=== PATIENT | male | born 1980 | race Hispanic/Latino ===

== ENCOUNTER 2018-08-03 22:04 | Emergency (ER) | payer BC ==
[2018-08-03] MEDS ORDERED: ONDANSETRON ODT 4 MG TAB ONE (22:50)
[2018-08-03] MEDS ORDERED: MORPHINE SULFATE 8 MG/ML VIAL ONE (22:51)
== END 2018-08-03 23:21 | disposition home or self-care (01) ==
LOC: EDH 22:04
DX: S83.8X1A Sprain of other specified parts of right knee, initial encounter (principal); Z72.0 Tobacco use; W18.39XA Other fall on same level, initial encounter; Y93.44 Activity, trampolining; Y92.830 Public park as the place of occurrence of the external cause; Y99.8 Other external cause status
CPT/HCPCS: 73562; 96372; 99284; J2270

== ENCOUNTER 2022-02-02 22:28 | Inpatient (IN) | payer OTHER ==
[~2022-02-02] VITALS: Ht 167.6 cm; Wt 83.9 kg
[~2022-02-02 22:28] MED LIST: ATEN1TAB4 PO; FINA5TAB41 PO; TAMS-1 PO
[2022-02-02 23:09] LABS: APPEARANCE,URINE Clear (CLEAR); BILIRUBIN,URINE Negative (NEGATIVE); COLOR,URINE Yellow (YELLOW); GLUCOSE, URINE (UA) Negative (NEGATIVE); KETONES,URINE Negative (NEGATIVE); LEUKOCYTE ESTERASE ,URINE Negative (NEGATIVE); NITRATE,URINE Negative (NEGATIVE); OCCULT BLOOD,URINE Negative (NEGATIVE); PH,URINE 5.5 (5.0-8.0); PROTEIN,URINE Negative (NEGATIVE); UROBILINOGEN,URINE 0.2 mg/dL (0.2-1.0)
[2022-02-02 23:09] LABS: BASOPHILS % (AUTO) 0.3 % (0.0-5.0); LYMPHOCYTES % (AUTO) 15.8 % (21.0-51.0); MEAN CORPUSCULAR HEMOGLOBIN 30.2 pg (27.0-33.0); MEAN CORPUSCULAR HGB CONC 32.6 g/dL (32.0-36.0); MEAN CORPUSCULAR VOLUME 92.9 fL (79-99); MONOCYTES % (AUTO) 8.8 % (3.0-13.0); NEUTROPHILS % (AUTO) 72.4 % (40.0-77.0); PLATELET COUNT (AUTO) 400 K/uL (130-400); WHITE BLOOD COUNT (AUTO) 8.9 K/uL (4.8-10.8)
[2022-02-02 23:22] LABS: CREATININE 1.3 mg/dL (0.5-1.5); POTASSIUM 4.3 mmol/L (3.5-5.1)
[2022-02-02 23:26] LABS: ALBUMIN 3.6 g/dL (3.5-5.0); BILIRUBIN,TOTAL 0.3 mg/dL (0.2-1.0); TOTAL PROTEIN, SERUM 7.9 g/dL (6.0-8.3)
[2022-02-02 23:31] LABS: INR 0.94 (0.85-1.15); PROTHROMBIN TIME 10.3 SEC (9.6-11.6)
[2022-02-03] VITALS (31 sets, daily range): BP systolic 120–189; BP diastolic 66–105
[2022-02-03] MEDS ORDERED: ACETAMINOPHEN 325 MG TAB PO PRN ×2
[2022-02-03] MEDS ORDERED: ONDANSETRON 4MG INJ IV PRN
[2022-02-03] MEDS ORDERED: KETOROLAC 15MG/ML VIAL (15MG/ML) IM PRN
[2022-02-03 05:00] LABS: BASOPHILS % (AUTO) 0.1 % (0.0-5.0); EOSINOPHILS % (AUTO) 2.8 % (0.0-8.0); HEMATOCRIT 33.9 % (42-54); LYMPHOCYTES % (AUTO) 19.1 % (21.0-51.0); MEAN CORPUSCULAR HEMOGLOBIN 29.8 pg (27.0-33.0); MEAN CORPUSCULAR HGB CONC 32.2 g/dL (32.0-36.0); MEAN CORPUSCULAR VOLUME 92.6 fL (79-99); MONOCYTES % (AUTO) 10.2 % (3.0-13.0); NEUTROPHILS % (AUTO) 67.1 % (40.0-77.0); PLATELET COUNT (AUTO) 323 K/uL (130-400); RED BLOOD CELL COUNT(AUTO) 3.66 MIL/uL (4.50-6.20); RED CELL DISTRIBUTION WIDTH 12.8 % (11.0-15.5); WHITE BLOOD COUNT (AUTO) 7.2 K/uL (4.8-10.8)
[2022-02-03 05:09] LABS: INR 0.94 (0.85-1.15); PROTHROMBIN TIME 10.3 SEC (9.6-11.6)
[2022-02-03 05:24] LABS: ALBUMIN 2.9 g/dL (3.5-5.0); BILIRUBIN,TOTAL 0.2 mg/dL (0.2-1.0); POTASSIUM 3.7 mmol/L (3.5-5.1); TOTAL PROTEIN, SERUM 6.4 g/dL (6.0-8.3)
[2022-02-03 06:29] LABS: ERYTHROCYTE SEDIMENTATION RATE 49 MM/HR (0-15)
[2022-02-03] MEDS ORDERED: ROPIVACAINE 0.5% 5MG/ML 30ML IJ ONE (12:27)
[2022-02-03] MEDS ORDERED: PROPOFOL 10 MG/ML 20ML VIAL IV ONE (12:49)
[2022-02-03] MEDS ORDERED: FENTANYL CITRATE PF 50 MCG/1 ML 2ML VIAL ONE ×3 (12:50→14:40)
[2022-02-03] MEDS ORDERED: LIDOCAINE PF 100MG/5ML (2%) SYRINGE 5ML ONE (12:50)
[2022-02-03] MEDS ORDERED: ROCURONIUM 10MG/1ML SYR 10 MG/ML ML ONE (12:50)
[2022-02-03] MEDS ORDERED: MIDAZOLAM HCL 1 MG/ML 2ML VIAL ONE (12:50)
[2022-02-03] MEDS ORDERED: FAMOTIDINE 20MG VIAL IV ONE (12:54)
[2022-02-03] MEDS ORDERED: LACTATED RINGERS 1000ML 1,000 ML IV ONE (13:15)
[2022-02-03] MEDS ORDERED: CEFAZOLIN SODIUM 1 GM VIAL ONE (13:32)
[2022-02-03] MEDS ORDERED: ONDANSETRON 4MG INJ ONE (13:54)
[2022-02-03 14:18] LABS: AMPHET/METH SCREEN,URINE NEGATIVE (NEGATIVE); BARBITURATE SCREEN, URINE NEGATIVE (NEGATIVE); BENZODIAZEPINES SCREEN,URINE NEGATIVE (NEGATIVE); CANNABINOID SCREEN,URINE POSITIVE (NEGATIVE); COCAINE SCREEN,URINE POSITIVE (NEGATIVE); OPIATE SCREEN,URINE NEGATIVE (NEGATIVE); PHENCYCLIDINE SCREEN,URINE NEGATIVE (NEGATIVE)
[2022-02-03] MEDS ORDERED: HYDROMORPHONE 1 MG INJ ONE (15:18)
[2022-02-03] MEDS ORDERED: DEXAMETHASONE SOD PHOSPHATE 4 MG/ML 1ML VIAL ONE (15:40)
[2022-02-03] MEDS ORDERED: LABETALOL 20MG VIAL IV ONE (16:40)
[2022-02-03] MEDS ORDERED: ENALAPRILAT DIHYDRATE 1.25MG/ML 1ML VIAL IV ONE (17:26)
[2022-02-03] MEDS ORDERED: CLONIDINE HCL 0.1 MG TABLET PO PRN (19:00)
[2022-02-03] MEDS ORDERED: TAMSULOSIN HCL 0.4 MG CAP.ER.24H PO SCH (21:00)
[2022-02-03] MEDS: KETOROLAC 15MG/ML VIAL (15MG/ML) IV PRN (21:00)
[2022-02-03] MEDS: CEFAZOLIN SODIUM 1 GM VIAL IVP SCH (21:04)
[2022-02-03] MEDS: 0.9%NACL 1000ML 1,000 ML IV SCH ×2 (21:04)
[2022-02-04 03:58] VITALS: BP 105/68
[2022-02-04 04:02] LABS: HEMATOCRIT 32.8 % (42-54); MEAN CORPUSCULAR HEMOGLOBIN 29.9 pg (27.0-33.0); MEAN CORPUSCULAR HGB CONC 32.6 g/dL (32.0-36.0); MEAN CORPUSCULAR VOLUME 91.6 fL (79-99); RED BLOOD CELL COUNT(AUTO) 3.58 MIL/uL (4.50-6.20); RED CELL DISTRIBUTION WIDTH 12.6 % (11.0-15.5); WHITE BLOOD COUNT (AUTO) 14.7 K/uL (4.8-10.8)
[2022-02-04 04:17] LABS: CREATININE 0.8 mg/dL (0.5-1.5); POTASSIUM 3.8 mmol/L (3.5-5.1)
[2022-02-04] MEDS: CEFAZOLIN SODIUM 1 GM VIAL IVP SCH (05:44)
[2022-02-04] MEDS: 0.9%NACL 1000ML 1,000 ML IV SCH (06:00)
[2022-02-04 07:30] VITALS: BP 114/79
[2022-02-04] MEDS: FINASTERIDE 5 MG TABLET PO SCH ×2 (08:44→09:00)
[2022-02-04] MEDS ORDERED: CHLORTHALIDONE PO SCH (09:00)
[2022-02-04] MEDS ORDERED: ATENOLOL PO SCH (09:00)
[2022-02-04 11:00] VITALS: BP 116/79
[2022-02-04 16:00] VITALS: BP 124/77
[2022-02-04] MEDS: KETOROLAC 15MG/ML VIAL (15MG/ML) IV PRN ×2 (16:23→22:56)
[2022-02-04 20:17] VITALS: BP 124/88
[2022-02-04] MEDS: FAMOTIDINE 20MG TAB PO SCH (21:00)
[2022-02-04 23:36] VITALS: BP 133/88
[2022-02-05 04:32] VITALS: BP 134/88
[2022-02-05 08:00] VITALS: BP 139/94
[2022-02-05] MEDS ORDERED: ENOXAPARIN SODIUM 40 MG/0.4 ML SYRINGE SQ SCH (09:00)
[2022-02-05] MEDS: FAMOTIDINE 20MG TAB PO SCH (09:41)
[2022-02-05] MEDS: KETOROLAC 15MG/ML VIAL (15MG/ML) IV PRN (10:50)
[2022-02-05 12:00] VITALS: BP 128/96
== END 2022-02-05 13:00 | disposition home or self-care (01) | DRG 493 ==
LOC: EDH 22:28 → EDHIP 22:29 → 3DH 02-03 03:03
PROVIDERS: ADMIT Hospitalist; ATTEND Hospitalist
PROC: 0QPHX5Z Removal of External Fixation Device from Left Tibia, External Approach (ICD-10-PCS; 2022-02-03)
PROC: 0QSH04Z Reposition Left Tibia with Internal Fixation Device, Open Approach (ICD-10-PCS; principal; 2022-02-03 13:39)
PROC: 0QSK04Z Reposition Left Fibula with Internal Fixation Device, Open Approach (ICD-10-PCS; 2022-02-03 13:39)
DX: T84.84XA Pain due to internal orthopedic prosthetic devices, implants and grafts, initial encounter (principal); E87.1 Hypo-osmolality and hyponatremia; Z20.822 Contact with and (suspected) exposure to COVID-19; I10 Essential (primary) hypertension; F12.90 Cannabis use, unspecified, uncomplicated; Y83.8 Other surgical procedures as the cause of abnormal reaction of the patient, or of later complication, without mention of misadventure at the time of the procedure; Y92.89 Other specified places as the place of occurrence of the external cause
CPT/HCPCS: 36415; 73610; 80048; 80053; 80305; 81003; 84145; 85025; 85027; 85610; 85651; 85730; 87635; 93005; 93971; 97039; C9803; G0378; J0690; J1100; J1170; J1650; J1885; J2001; J2250; J2405; J2704; J2795; J3010; J3490; J7030; J7120

== ENCOUNTER 2022-10-29 20:10 | Emergency (ER) | payer OTHER ==
[~2022-10-29] VITALS: Ht 170.2 cm; Wt 78.5 kg
[2022-10-29] MEDS ORDERED: IBUPROFEN 800 MG TAB PO ONE (21:00)
[2022-10-29 21:45] LABS: BASOPHILS % (AUTO) 0.1 % (0.0-5.0); EOSINOPHILS % (AUTO) 1.3 % (0.0-8.0); HEMATOCRIT 37.2 % (42-54); MEAN CORPUSCULAR HEMOGLOBIN 29.5 pg (27.0-33.0); MEAN CORPUSCULAR HGB CONC 32.8 g/dL (32.0-36.0); MEAN CORPUSCULAR VOLUME 90.1 fL (79-99); MONOCYTES % (AUTO) 6.8 % (3.0-13.0); NEUTROPHILS % (AUTO) 76.6 % (40.0-77.0); PLATELET COUNT (AUTO) 333 K/uL (130-400); RED BLOOD CELL COUNT(AUTO) 4.13 MIL/uL (4.50-6.20); RED CELL DISTRIBUTION WIDTH 12.9 % (11.0-15.5); WHITE BLOOD COUNT (AUTO) 9.4 K/uL (4.8-10.8)
[2022-10-29 21:56] LABS: POTASSIUM 3.6 mmol/L (3.5-5.1)
[2022-10-29 22:02] LABS: ALBUMIN 3.3 g/dL (3.5-5.0); CRP QUANTITATIVE 16.5 mg/L (0.00-9.0); TOTAL PROTEIN, SERUM 7.6 g/dL (6.0-8.3)
[2022-10-29 22:39] VITALS: BP 146/71
== END 2022-10-29 22:45 | disposition home or self-care (01) ==
LOC: EDH 20:10
DX: M25.572 Pain in left ankle and joints of left foot (principal); Z79.1 Long term (current) use of non-steroidal anti-inflammatories (NSAID)
CPT/HCPCS: 36415; 73610; 80053; 83605; 85025; 86140; 87040

== ENCOUNTER 2023-04-18 12:27 | Inpatient (IN) | payer OTHER ==
[~2023-04-18] VITALS: Ht 170.2 cm; Wt 81.4 kg
[2023-04-18] MEDS ORDERED: CLINDAMYCIN IVPB 600MG/50ML 50 ML IV SCH (15:00)
[2023-04-18 18:03] LABS: BASOPHILS % (AUTO) 0.2 % (0.0-5.0); EOSINOPHILS % (AUTO) 1.9 % (0.0-8.0); HEMATOCRIT 40.8 % (42-54); LYMPHOCYTES % (AUTO) 13.4 % (21.0-51.0); MEAN CORPUSCULAR HEMOGLOBIN 28.9 pg (27.0-33.0); MEAN CORPUSCULAR HGB CONC 32.1 g/dL (32.0-36.0); MEAN CORPUSCULAR VOLUME 90.1 fL (79-99); MONOCYTES % (AUTO) 7.6 % (3.0-13.0); NEUTROPHILS % (AUTO) 76.5 % (40.0-77.0); PLATELET COUNT (AUTO) 310 K/uL (130-400); RED BLOOD CELL COUNT(AUTO) 4.53 MIL/uL (4.50-6.20); RED CELL DISTRIBUTION WIDTH 13.9 % (11.0-15.5)
[2023-04-18] MEDS: CLINDAMYCIN IVPB 900MG/50ML 50 ML IV SCH (18:38)
[2023-04-18 18:54] LABS: CREATININE 0.8 mg/dL (0.5-1.5); POTASSIUM 4.1 mmol/L (3.5-5.1)
[2023-04-18 18:59] LABS: ALBUMIN 3.4 g/dL (3.5-5.0); TOTAL PROTEIN, SERUM 7.8 g/dL (6.0-8.3)
[2023-04-18] MEDS ORDERED: ACETAMINOPHEN 325 MG TAB PO PRN ×2 (19:00)
[2023-04-18] MEDS ORDERED: MORPHINE 2 MG SYG IV PRN (19:00)
[2023-04-18] MEDS ORDERED: ONDANSETRON 4MG INJ IV PRN (19:00)
[2023-04-18] MEDS: LACTATED RINGERS 1000ML 1,000 ML IV SCH (19:43)
[2023-04-18] MEDS: FAMOTIDINE 20MG VIAL IV SCH (21:59)
[2023-04-18] MEDS: ZOSYN 3.375GM+NS 50ML 50 ML IVPB SCH (21:59)
[2023-04-19] MEDS: CLINDAMYCIN IVPB 900MG/50ML 50 ML IV SCH ×3 (02:18→18:35)
[2023-04-19 04:01] VITALS: BP 141/93
[2023-04-19] MEDS: MORPHINE 4 MG SYG IV PRN ×3 (04:32→18:54)
[2023-04-19] MEDS: ZOSYN 3.375GM+NS 50ML 50 ML IVPB SCH ×3 (04:32→21:02)
[2023-04-19 05:46] LABS: BASOPHILS % (AUTO) 0.3 % (0.0-5.0); EOSINOPHILS % (AUTO) 2.4 % (0.0-8.0); HEMATOCRIT 36.1 % (42-54); LYMPHOCYTES % (AUTO) 18.5 % (21.0-51.0); MEAN CORPUSCULAR HEMOGLOBIN 28.7 pg (27.0-33.0); MEAN CORPUSCULAR HGB CONC 32.4 g/dL (32.0-36.0); MEAN CORPUSCULAR VOLUME 88.7 fL (79-99); MONOCYTES % (AUTO) 8.6 % (3.0-13.0); NEUTROPHILS % (AUTO) 69.8 % (40.0-77.0); PLATELET COUNT (AUTO) 277 K/uL (130-400); RED BLOOD CELL COUNT(AUTO) 4.07 MIL/uL (4.50-6.20); RED CELL DISTRIBUTION WIDTH 13.4 % (11.0-15.5); WHITE BLOOD COUNT (AUTO) 7.8 K/uL (4.8-10.8)
[2023-04-19 06:00] LABS: INR 0.94 (0.85-1.15); PROTHROMBIN TIME 10.3 SEC (9.6-11.6)
[2023-04-19 06:01] LABS: PARTIAL THROMBOPLASTIN TIME 31.9 SEC (26.3-35.5)
[2023-04-19 06:12] LABS: CREATININE 0.8 mg/dL (0.5-1.5); MAGNESIUM 1.9 mg/dL (1.80-2.40); PHOSPHORUS 3.7 mg/dL (2.5-4.9); POTASSIUM 3.5 mmol/L (3.5-5.1)
[2023-04-19 08:00] VITALS: BP 137/74
[2023-04-19] MEDS: ENOXAPARIN SODIUM 40 MG/0.4 ML SYRINGE SQ SCH (09:00)
[2023-04-19] MEDS: FAMOTIDINE 20MG VIAL IV SCH ×2 (09:00→21:02)
[2023-04-19] MEDS: LACTATED RINGERS 1000ML 1,000 ML IV SCH (11:24)
[2023-04-19 12:00] VITALS: BP 134/75
[2023-04-19 16:00] VITALS: BP 115/72
[2023-04-19 20:13] VITALS: BP 119/86
[2023-04-19] MEDS: ZOLPIDEM TARTRATE 5 MG TAB PO PRN (21:21)
[2023-04-20] VITALS (7 sets, daily range): BP systolic 108–149; BP diastolic 64–103
[2023-04-20] MEDS: LACTATED RINGERS 1000ML 1,000 ML IV SCH ×2 (01:00→03:55)
[2023-04-20] MEDS: ZOSYN 3.375GM+NS 50ML 50 ML IVPB SCH ×3 (03:46→20:51)
[2023-04-20] MEDS: CLINDAMYCIN IVPB 900MG/50ML 50 ML IV SCH ×2 (03:46→10:41)
[2023-04-20 08:02] LABS: BASOPHILS % (AUTO) 0.4 % (0.0-5.0); HEMATOCRIT 36.8 % (42-54); LYMPHOCYTES % (AUTO) 26.2 % (21.0-51.0); MEAN CORPUSCULAR HEMOGLOBIN 28.9 pg (27.0-33.0); MEAN CORPUSCULAR HGB CONC 32.1 g/dL (32.0-36.0); MEAN CORPUSCULAR VOLUME 90.2 fL (79-99); MONOCYTES % (AUTO) 11.1 % (3.0-13.0); NEUTROPHILS % (AUTO) 57.9 % (40.0-77.0); PLATELET COUNT (AUTO) 272 K/uL (130-400); RED BLOOD CELL COUNT(AUTO) 4.08 MIL/uL (4.50-6.20); RED CELL DISTRIBUTION WIDTH 13.3 % (11.0-15.5)
[2023-04-20 08:17] LABS: CREATININE 0.8 mg/dL (0.5-1.5); CRP QUANTITATIVE 17.5 mg/L (0.00-9.0)
[2023-04-20] MEDS: FAMOTIDINE 20MG TAB PO SCH ×2 (08:44→20:52)
[2023-04-20] MEDS: ENOXAPARIN SODIUM 40 MG/0.4 ML SYRINGE SQ SCH (08:45)
[2023-04-20 09:37] LABS: ERYTHROCYTE SEDIMENTATION RATE 58 MM/HR (0-15)
[2023-04-20] MEDS: TRAMADOL HCL 50 MG TABLET PO PRN (14:29)
[2023-04-20] MEDS ORDERED: VANCOMYCIN PROTOCOL PER PHARMACY IV SCH (14:30)
[2023-04-20] MEDS: VANCOMYCIN KIT 1 GM/250 ML IV.KIT IV SCH ×2 (16:08→23:20)
[2023-04-20] MEDS: ZOLPIDEM TARTRATE 5 MG TAB PO PRN (20:51)
[2023-04-21] VITALS: BP 136/98
[2023-04-21 04:00] VITALS: BP 145/80
[2023-04-21] MEDS: ZOSYN 3.375GM+NS 50ML 50 ML IVPB SCH ×3 (05:01→21:20)
[2023-04-21 05:12] LABS: BASOPHILS % (AUTO) 0.4 % (0.0-5.0); EOSINOPHILS % (AUTO) 3.1 % (0.0-8.0); HEMATOCRIT 37.2 % (42-54); LYMPHOCYTES % (AUTO) 23.3 % (21.0-51.0); MEAN CORPUSCULAR HEMOGLOBIN 28.8 pg (27.0-33.0); MEAN CORPUSCULAR HGB CONC 31.7 g/dL (32.0-36.0); MEAN CORPUSCULAR VOLUME 90.7 fL (79-99); MONOCYTES % (AUTO) 8.8 % (3.0-13.0); PLATELET COUNT (AUTO) 284 K/uL (130-400); RED CELL DISTRIBUTION WIDTH 13.2 % (11.0-15.5); WHITE BLOOD COUNT (AUTO) 4.9 K/uL (4.8-10.8)
[2023-04-21 05:25] LABS: CREATININE 0.8 mg/dL (0.5-1.5); POTASSIUM 3.5 mmol/L (3.5-5.1)
[2023-04-21 06:39] LABS: ERYTHROCYTE SEDIMENTATION RATE 48 MM/HR (0-15)
[2023-04-21 08:00] VITALS: BP 128/75
[2023-04-21] MEDS: FAMOTIDINE 20MG TAB PO SCH ×2 (09:20→21:20)
[2023-04-21] MEDS: ENOXAPARIN SODIUM 40 MG/0.4 ML SYRINGE SQ SCH (09:21)
[2023-04-21] MEDS: VANCOMYCIN KIT 1 GM/250 ML IV.KIT IV SCH ×3 (09:22→21:20)
[2023-04-21 12:00] VITALS: BP 117/80
[2023-04-21 16:00] VITALS: BP 112/73
[2023-04-21 20:00] VITALS: BP 135/77
[2023-04-21] MEDS: ZOLPIDEM TARTRATE 5 MG TAB PO PRN (21:20)
[2023-04-21] MEDS: TRAMADOL HCL 50 MG TABLET PO PRN (21:26)
[2023-04-22] VITALS: BP 143/92
[2023-04-22 04:00] VITALS: BP 149/96
[2023-04-22] MEDS: ZOSYN 3.375GM+NS 50ML 50 ML IVPB SCH ×3 (05:06→20:38)
[2023-04-22 08:00] VITALS: BP 148/95
[2023-04-22] MEDS: VANCOMYCIN KIT 1 GM/250 ML IV.KIT IV SCH ×2 (08:57→15:19)
[2023-04-22] MEDS: FAMOTIDINE 20MG TAB PO SCH ×2 (08:58→20:38)
[2023-04-22] MEDS: ENOXAPARIN SODIUM 40 MG/0.4 ML SYRINGE SQ SCH (08:59)
[2023-04-22] MEDS: TRAMADOL HCL 50 MG TABLET PO PRN ×2 (09:08→22:50)
[2023-04-22 12:00] VITALS: BP 139/94
[2023-04-22 17:20] VITALS: BP 137/88
[2023-04-22] MEDS ORDERED: NYSTATIN-TRIAMCINOLONE CREAM 15 GM TP PRN (18:00)
[2023-04-22 20:00] VITALS: BP 145/81
[2023-04-23] VITALS: BP 130/93
[2023-04-23] MEDS: VANCOMYCIN KIT 1 GM/250 ML IV.KIT IV SCH ×3 (00:13→15:30)
[2023-04-23] MEDS: ZOLPIDEM TARTRATE 5 MG TAB PO PRN (00:13)
[2023-04-23 04:00] VITALS: BP 127/84
[2023-04-23] MEDS: ZOSYN 3.375GM+NS 50ML 50 ML IVPB SCH ×2 (04:44→13:00)
[2023-04-23 06:41] LABS: BASOPHILS % (AUTO) 0.3 % (0.0-5.0); EOSINOPHILS % (AUTO) 2.5 % (0.0-8.0); HEMATOCRIT 38.6 % (42-54); LYMPHOCYTES % (AUTO) 24.1 % (21.0-51.0); MEAN CORPUSCULAR HEMOGLOBIN 28.8 pg (27.0-33.0); MEAN CORPUSCULAR HGB CONC 32.6 g/dL (32.0-36.0); MEAN CORPUSCULAR VOLUME 88.1 fL (79-99); MONOCYTES % (AUTO) 8.8 % (3.0-13.0); NEUTROPHILS % (AUTO) 63.8 % (40.0-77.0); PLATELET COUNT (AUTO) 295 K/uL (130-400); RED BLOOD CELL COUNT(AUTO) 4.38 MIL/uL (4.50-6.20); RED CELL DISTRIBUTION WIDTH 13.4 % (11.0-15.5); WHITE BLOOD COUNT (AUTO) 5.9 K/uL (4.8-10.8)
[2023-04-23 07:01] LABS: CREATININE 0.8 mg/dL (0.5-1.5); POTASSIUM 4.1 mmol/L (3.5-5.1); TOTAL PROTEIN, SERUM 6.8 g/dL (6.0-8.3)
[2023-04-23 08:00] VITALS: BP 138/89
[2023-04-23] MEDS: FAMOTIDINE 20MG TAB PO SCH (09:25)
[2023-04-23] MEDS: ENOXAPARIN SODIUM 40 MG/0.4 ML SYRINGE SQ SCH (09:26)
[2023-04-23] MEDS: TRAMADOL HCL 50 MG TABLET PO PRN (10:13)
[2023-04-23 11:51] VITALS: BP 139/87
[2023-04-23 12:48] LABS: INR 0.93 (0.85-1.15); PROTHROMBIN TIME 10.1 SEC (9.6-11.6)
[2023-04-23 12:55] LABS: PARTIAL THROMBOPLASTIN TIME 31.6 SEC (26.3-35.5)
[2023-04-23 16:00] VITALS: BP 137/99
== END 2023-04-23 07:47 | disposition home or self-care (01) | DRG 565 ==
LOC: EDH 12:27 → EDHIP 12:28 → 4BH 04-19 01:20
PROVIDERS: ADMIT Hospitalist; ATTEND Hospitalist
DX: M24.89 Other specific joint derangement of other specified joint, not elsewhere classified (principal); M86.672 Other chronic osteomyelitis, left ankle and foot; F17.200 Nicotine dependence, unspecified, uncomplicated; D64.9 Anemia, unspecified; F19.90 Other psychoactive substance use, unspecified, uncomplicated; G89.29 Other chronic pain; Z20.822 Contact with and (suspected) exposure to COVID-19; Z51.5 Encounter for palliative care; Z59.7 Insufficient social insurance and welfare support; Z79.899 Other long term (current) drug therapy
CPT/HCPCS: 36415; 73610; 73700; 80048; 80053; 80202; 83605; 83735; 84100; 84145; 85025; 85610; 85651; 85730; 86140; 86850; 86900; 86901; 87040; 87635; 93005; G0378; J1650; J2270; J2543; J3370; J3490; J7120

== ENCOUNTER → 2024-06-10 | Outpatient (CLI) | payer OTHER | END | disposition home or self-care (01) | LOC: RAH 15:34 | PROVIDERS: ATTEND Internal Medicine | DX: S39.92XA Unspecified injury of lower back, initial encounter (principal); M17.11 Unilateral primary osteoarthritis, right knee; M47.816 Spondylosis without myelopathy or radiculopathy, lumbar region; M25.561 Pain in right knee; M25.571 Pain in right ankle and joints of right foot; X58.XXXA Exposure to other specified factors, initial encounter; Y93.89 Activity, other specified; Y92.89 Other specified places as the place of occurrence of the external cause; Y99.8 Other external cause status | CPT/HCPCS: 72100; 73560 ==

== ENCOUNTER → 2024-06-13 | Outpatient (CLI) | payer OTHER | END | disposition home or self-care (01) | LOC: RAH 15:47 | PROVIDERS: ATTEND Internal Medicine | DX: M25.571 Pain in right ankle and joints of right foot (principal); M79.89 Other specified soft tissue disorders | CPT/HCPCS: 73600 ==